=== PATIENT | male | born 1990 | race Hispanic/Latino ===

== ENCOUNTER 2017-01-28 19:17 | Emergency (ER) | payer OTHER ==
[2017-01-28 19:24] VITALS: BP 164/89; PULSE 73; RESP 14; TEMP 98.8; O2SAT 99
--- NOTE | 2017-01-28 20:42 | ED PDOC ---
Upper Extremity Pain/Injury Time Seen by Provider: 01/28/17 20:06 Chief Complaint (Nursing): Finger,Hand,&Wrist Chief Complaint (Provider): right hand injury History Per: Patient History/Exam Limitations: no limitations Additional Complaint(s): 26yo M in ED for eval of right hand injury sustained 2.5 weeks ago after playing football and jamming into ball-noted deformity to finger, attempted to reduce it and noted 2-3d after continuos swelling to finger without dec ROM or pain. pt now in ED with concerns about possible fracture. no numbness no tingling. Past Medical History Reviewed: Historical Data, Nursing Documentation, Vital Signs Vital Signs: Last Vital Signs Temp 98.8 F 01/28/17 19:21 Pulse 73 01/28/17 19:21 Resp 14 01/28/17 19:21 BP 164/89 H 01/28/17 19:21 Pulse Ox 99 01/28/17 19:21 - Medical History PMH: No Chronic Diseases - Family History Family History: States: No Known Family Hx - Allergies Allergies/Adverse Reactions: Allergies Allergy/AdvReac Type Severity Reaction Status Date / Time cephalexin [From Keflex] Allergy RASH Verified 01/28/17 19:21 Review of Systems ROS Statement: Except As Marked, All Systems Reviewed And Found Negative Musculoskeletal: Positive for: Hand Pain Physical Exam - Reviewed Nursing Documentation Reviewed: Yes Vital Signs Reviewed: Yes - Physical Exam Appears: Positive for: Well, Non-toxic, No Acute Distress Skin: Positive for: Normal Color, Warm, DRY Cardiovascular/Chest: Positive for: Regular Rate, Rhythm Respiratory: Positive for: CNT, Normal Breath Sounds Extremity: Positive for: Other (right hand: 4th digit DIP with defomrity swelling. FROM of digits normal pulses nuerovasc intact) Neurologic/Psych: Positive for: Alert, Oriented - ECG O2 Sat by Pulse Oximetry: 99 - Radiology X-Ray: Interpreted by Me (fx noted/discolocation noted.) Medical Decision Making Medical Decision Making: pt strongly advised to f.u with hand surgeon pt given finger splint. stable in ED no pain at time of d/c Disposition - Clinical Impression Clinical Impression: Finger fracture - Patient ED Disposition Is Patient to be Admitted: No Counseled Patient/Family Regarding: Studies Performed, Diagnosis, Need For Followup, Rx Given - Disposition Referrals: [facility] [Outside] Erick Levy MD [Medical Doctor] - Disposition: Routine/Home Disposition Time: 20:45 Condition: STABLE Instructions: Finger Fracture (ED)
--- NOTE | 2017-01-29 12:26 | RAD ---
PROCEDURE: Right Hand Radiographs. HISTORY: trauma attn fourth digit COMPARISON: None. FINDINGS: BONES: Comminuted intra-articular fracture proximal margin distal phalanx 4th finger. The possibility of a fracture of the distal aspect middle phalanx 4th finger not excluded. Old healed boxer fracture deformity top minute are hot carpal. JOINTS: Normal. No osteoarthritic changes. SOFT TISSUES: Normal. OTHER FINDINGS: None. IMPRESSION: Comminuted intra-articular fracture proximal margin distal phalanx 4th finger. The possibility of a fracture of the distal aspect middle phalanx 4th finger not excluded.
== END 2017-01-28 21:00 | disposition home or self-care (01) ==
LOC: H.ER 19:17
DX: S62.614A Displaced fracture of proximal phalanx of right ring finger, initial encounter for closed fracture (principal); X50.9XXA Other and unspecified overexertion or strenuous movements or postures, initial encounter; Y92.321 Football field as the place of occurrence of the external cause